=== PATIENT | female | born 1985 | race Caucasian/White ===

== ENCOUNTER 2017-01-03 08:33 | Day surgery (SDC) | payer OTHER ==
[~2017-01-03] VITALS: Ht 160 cm; Wt 80.9 kg
[~2017-01-03 08:33] MED LIST: ACYC-114 PO; ALPR0.5T10 PO; CHOL200024 PO; FISH1CAP PO; HYDR-3237 PO; IBUP-1222 PO; LEVO100T5 PO; LEVO5TAB29 PO; LIDOCAINE 1%, 2ML ONE; LYSI500T PO; OXYC-307 PO; OXYC5CAP2 PO; PREN1TAB27 PO; RANI150T8 PO
[2017-01-03] MEDS ORDERED: FENTANYL PF 100 MCG/2ML ONE ×3 (08:52→10:50)
[2017-01-03] MEDS ORDERED: MIDAZOLAM 1 MG/ML, 2ML ONE (08:52)
[2017-01-03] MEDS ORDERED: LACTATED RINGERS 1,000 ML IV SCH ×2 (09:01→09:12)
[2017-01-03] MEDS ORDERED: RANI150T8 PO (09:08)
[2017-01-03] MEDS ORDERED: METF500T4 PO (09:08)
[2017-01-03] MEDS ORDERED: ASCO500T12 PO (09:08)
[2017-01-03] MEDS ORDERED: FERR-46 PO (09:08)
[2017-01-03] MEDS ORDERED: LEVO100T5 PO (09:08)
[2017-01-03] MEDS ORDERED: CALC-112 PO (09:08)
[2017-01-03] MEDS ORDERED: CETI10TA24 PO (09:08)
[2017-01-03] MEDS ORDERED: PNV1TABL11 PO (09:08)
[2017-01-03 09:09] VITALS: BP 118/77
[2017-01-03] MEDS ORDERED: LIDOCAINE 1%, 2ML SQ PRN (09:30)
[2017-01-03] MEDS ORDERED: METHYLERGONOVINE 0.2 MG/ML IM ONE (09:34)
[2017-01-03] MEDS ORDERED: OXYTOCIN 10 UNITS/ML, 1ML ONE (09:34)
[2017-01-03] MEDS ORDERED: MISOPROSTOL 200 MCG TABLET ONE (09:34)
[2017-01-03] MEDS ORDERED: SCOPOLAMINE PATCH, 1.5MG PATCH.TD72 TD ONE ×2 (09:36→10:00)
[2017-01-03] MEDS ORDERED: ONDANSETRON 2MG/ML, 2ML ONE (10:11)
[2017-01-03] MEDS ORDERED: PROPOFOL 10 MG/ML, 20ML ONE (10:11)
[2017-01-03] MEDS ORDERED: KETOROLAC 30 MG/1 ML ONE (10:11)
[2017-01-03] MEDS ORDERED: DEXAMETHASONE 4 MG/ML, 5ML ONE (10:11)
[2017-01-03] MEDS ORDERED: ALBUTEROL SULFATE 2.5 MG/3 ML NPPB PRN (10:30)
[2017-01-03] MEDS ORDERED: EPHEDRINE 50 MG/ML, 1ML IVPush PRN (10:30)
[2017-01-03] MEDS ORDERED: HYDROcodone/APAP 7.5-325MG/15ML UDC PO PRN (10:30)
[2017-01-03] MEDS ORDERED: ACETAMINOPHEN 325 MG TABLET PO PRN (10:30)
[2017-01-03] MEDS ORDERED: METOPROLOL 1 MG/ML, 5ML IV PRN (10:30)
[2017-01-03] MEDS ORDERED: hydrALAzine 20 MG/ML, 1ML IV PRN (10:30)
[2017-01-03] MEDS ORDERED: LABETALOL 5MG/ML, 20ML IV PRN (10:30)
[2017-01-03] MEDS ORDERED: HYDROmorphone 1 MG/ML, 1ML IV PRN (10:30)
[2017-01-03] MEDS ORDERED: FENTANYL PF 100 MCG/2ML IV PRN (10:30)
[2017-01-03] MEDS ORDERED: MIDAZOLAM 1 MG/ML, 2ML IV PRN (10:30)
[2017-01-03] MEDS ORDERED: OXYcodone 5 MG/5 ML ORAL.SOL UDC PO PRN (10:30)
[2017-01-03] MEDS ORDERED: ONDANSETRON 2MG/ML, 2ML IVPush PRN (10:30)
[2017-01-03] MEDS ORDERED: PROMETHAZINE 25 MG/ML, 1ML IV PRN (10:30)
[2017-01-03] MEDS ORDERED: MEPERIDINE/PF 25MG/0.5ML IVPush PRN (10:30)
[2017-01-03] MEDS ORDERED: HYDROcodone/APAP 7.5-325MG/15ML UDC ONE (10:49)
== END 2017-01-03 12:40 ==
LOC: OUT 08:33
PROVIDERS: ATTEND Specialist
DX: O02.1 Missed abortion (principal); E89.0 Postprocedural hypothyroidism; Z3A.01 Less than 8 weeks gestation of pregnancy
CPT/HCPCS: 36415; 59812; 86900; 88305; J1100; J1885; J2250; J2405; J2704; J3010; J3490; J7120; J2210; J2590

== ENCOUNTER → 2018-03-18 | Day surgery (SDC) | payer OTHER ==
[~2018-03-18] VITALS: Ht 160 cm; Wt 79.6 kg
[~2018-03-18] MED LIST changes: +ASCO500T12 PO; +CALC-112 PO; +CETI10TA24 PO; +FENTANYL PF 100 MCG/2ML IV PRN; +FERR-46 PO; +HYDROcodone/APAP 7.5-325MG/15ML UDC PO PRN; +IBUPROFEN 600 MG TABLET PO PRN; +KETOROLAC 30 MG/1 ML IV PRN; -LIDOCAINE 1%, 2ML ONE; +METF500T17 PO; +ONDANSETRON 2MG/ML, 2ML IV PRN; +ONDANSETRON 2MG/ML, 2ML IVPush ONE; +ONDANSETRON ODT 4 MG ONE; +ONDANSETRON ODT 4 MG PO ONE; +OXYcodone/APAP 5/325MG TABLET ONE; +OXYcodone/APAP 5/325MG TABLET PO ONE; +PNV1TABL11 PO; +PROMETHAZINE 25 MG SUPP PR ONE; +RANI150T23 PO; -RANI150T8 PO
[2018-03-18 16:54] VITALS: BP 125/65
[2018-03-18 17:28] LABS: BASOPHILS # (AUTO) 0.03 x10^3/uL (0-0.1); BASOPHILS % (AUTO) 0 % (0-1); EOSINOPHILS # (AUTO) 0.12 x10^3/uL (0-0.4); EOSINOPHILS % (AUTO) 1 % (1-7); LYMPHOCYTES # (AUTO) 2.06 x10^3/uL (1-3.4); LYMPHOCYTES % (AUTO) 22 % (22-44); MD NO; MEAN CORPUSCULAR HEMOGLOBIN 32.4 pg (27.0-34.8); MEAN CORPUSCULAR HGB CONC 34.4 g/dL (32.4-35.8); MEAN CORPUSCULAR VOLUME 94.4 fL (80-100); MEAN PLATELET VOLUME 9.3 fL (7.4-10.4); MONOCYTES % (AUTO) 7 % (2-9); NEUTROPHILS # (AUTO) 6.59 x10^3/uL (1.8-6.8); NEUTROPHILS % (AUTO) 69 % (42-75); PLATELET COUNT 249 x10^3/uL (130-400); RED CELL DISTRIBUTION WIDTH 12.4 % (9.6-15.2)
[2018-03-18 17:40] LABS: ALBUMIN 3.4 g/dL (3.4-5.0); ANION GAP 8 mmol/L (5-15); CALCIUM 8.4 mg/dL (8.5-10.1); CHLORIDE 109 mmol/L (98-107); CREATININE 0.73 mg/dL (0.55-1.02)
== END | disposition home or self-care (01) ==
LOC: ED 18:01 → EDIP 18:26 → UNDOADMIN 18:26 → OR 18:26 → EDIP 20:40 → 4NOR 20:40 → UNDODISIN 23:12
PROVIDERS: ATTEND Specialist
DX: O02.1 Missed abortion (principal); E78.5 Hyperlipidemia, unspecified; K21.9 Gastro-esophageal reflux disease without esophagitis
CPT/HCPCS: 36415; 59820; 80048; 82040; 85025; 86850; 86900; 88305; 99285; J0330; J1100; J1170; J1885; J2250; J2405; J2704; J3010; Q0162; G0378; J2210; J2590